=== PATIENT | male | born 1990 | race Caucasian/White ===

== ENCOUNTER 2019-03-05 04:46 | Emergency (ER) | payer OTHER ==
[~2019-03-05] VITALS: Ht 182.9 cm; Wt 73.5 kg
[2019-03-05] MEDS ORDERED: TETANUS/DIPHTHERIA TOX ADULT 0.5 ML SYR IM ONE (05:00)
--- NOTE | 2019-03-05 06:27 | Diagnostic Imaging Report ---
HAND RIGHT 2 VIEWS - 2 views HISTORY: Pain COMPARISON: None available. FINDINGS: Bones: No acute displaced fracture. Osseous alignment is within normal limits. Joints: The joint spaces are well-maintained. Soft tissues: The soft tissues appear unremarkable. IMPRESSION: No acute fracture or description of the right hand. No radiopaque foreign body seen in the fifth digit and lateral hand. Signed by: Dr. Mathieu Winters MD on 03/05/2019 6:24 AM
--- NOTE | 2019-03-05 06:28 | Diagnostic Imaging Report ---
WRIST RIGHT 2 VIEWS - 2 views HISTORY: Pain COMPARISON: None available. FINDINGS: Bones: No acute displaced fracture. Osseous alignment is within normal limits. Joints: The joint spaces are well-maintained. Soft tissues: The soft tissues appear unremarkable. IMPRESSION: No acute radiographic abnormality. Signed by: Dr. Mathieu Winters MD on 03/05/2019 6:25 AM
== END 2019-03-05 06:15 | disposition home or self-care (01) ==
LOC: ER 04:46
DX: S61.210A Laceration without foreign body of right index finger without damage to nail, initial encounter (principal); S60.811A Abrasion of right wrist, initial encounter; S60.511A Abrasion of right hand, initial encounter; W25.XXXA Contact with sharp glass, initial encounter; Y99.0 Civilian activity done for income or pay
CPT/HCPCS: 90471; 90714; 99283